=== PATIENT | male | born 1995 | race Caucasian/White ===

== ENCOUNTER 2021-08-01 14:55 | Emergency (ER) | payer MEDICAID, OTHER ==
[~2021-08-01] VITALS: Ht 172.7 cm; Wt 68.0 kg
--- NOTE | 2021-08-01 15:10 | NUR ---
Patient nodded his head yes when asked if he took meth today. His eyes are all red and he is acting abnormal. Placed on a monitor. VSS. IV intact
[2021-08-01] MEDS ORDERED: IV NORMAL SALINE 1000 ML BAG IV ONE ×3 (15:15→18:30)
[2021-08-01] MEDS ORDERED: LORAZEPAM 2 MG/1 ML VIAL IV ONE (15:30)
[2021-08-01 15:35] LABS: HEMATOCRIT 40.5 % (36.7-47.1); MEAN CORPUSCULAR HEMOGLOBIN 30.2 uug (23.8-33.4); MEAN CORPUSCULAR VOLUME 86.8 fL (73.0-96.2); PLATELET COUNT (AUTO) 284 K/uL (152-348)
[2021-08-01] MEDS ORDERED: LORAZEPAM 2 MG/1 ML VIAL ONE (15:39)
[2021-08-01 15:47] LABS: ETHANOL < 3 MG/DL (0-0)
[2021-08-01 15:48] LABS: CARBON DIOXIDE 26 mmol/L (21-32); CHLORIDE 102 mmol/L (98-107); CREATININE 1.2 mg/dL (0.6-1.3); GLUCOSE 89 mg/dL (74-106); POTASSIUM 3.6 mmol/L (3.5-5.1); UREA NITROGEN, BLOOD 17 mg/dL (7-18)
[2021-08-01 16:01] LABS: THYROID STIMULATING HORMONE 1.362 mIU/mL (0.358-3.740)
[2021-08-01 16:03] LABS: ACETAMINOPHEN < 2.0 ug/mL (10-30); ALANINE AMINOTRANSFERASE 37 U/L (16-63); ALKALINE PHOSPHATASE 70 U/L (50-136); ASPARTATE AMINOTRANSFERASE 65 U/L (15-37); BILIRUBIN,DIRECT 0.2 mg/dL (0.0-0.2); BILIRUBIN,TOTAL 0.9 mg/dL (0.2-1.0); CREATINE KINASE, TOTAL 3541 U/L (39-308); TOTAL PROTEIN, SERUM 8.4 g/dL (6.4-8.2)
--- NOTE | 2021-08-01 17:24 | NUR ---
Urine sent to lab
[2021-08-01 18:10] LABS: *BILIRUBIN,URIN NEGATIVE (NEGATIVE); *BLOOD, URINE NEGATIVE (NEGATIVE); *CLARITY,URINE CLEAR (CLEAR); *COLOR,URINE YELLOW (YELLOW); *KETONES,URINE 3+ (NEGATIVE); *UROBILINOGEN,URINE 0.2 E.U./dl (NORMAL); LEUKOCYTE ESTERASE ,URINE NEGATIVE (NEGATIVE); NITRITE, URINE NEGATIVE (NEGATIVE); PH,URINE 6.5 (5.0-8.0); UGLUCOSE NEGATIVE (NEGATIVE)
[2021-08-01 18:22] LABS: *AMPHETAMINE, URINE POSITIVE (NEGATIVE); *CANNABINOID, URINE NEGATIVE (NEGATIVE); *COCCAINE, URINE NEGATIVE (NEGATIVE); *OPIATE, URINE NEGATIVE (NEGATIVE); *PHENCYCLIDINE SCREEN,URINE NEGATIVE (NEGATIVE)
--- NOTE | 2021-08-01 19:00 | NUR ---
BIB [facility] WHO STATE PT WAS FOUND WANDERING ON THE SIDEWALK. PT STATED METH USE PER PARAMEDICS.
[2021-08-01 22:22] LABS: BACTERIA,URINE NONE SEEN /HPF (NONE SEEN); MUCUS,URINE FEW /LPF (0-FEW); RBC,URINE 0-3 /HPF (0-3); SPERM,URINE FEW /HPF (NONE SEEN); SQUAMOUS EPITHELIAL CELL,UR FEW /HPF (NONE SEEN); WBC,URINE 0-3 /HPF (0-3)
--- NOTE | 2021-08-02 00:50 | NUR ---
Patient anxious, restless, kneeling down with face on the floor, stating he is praying. Refusing to get back to bed. Dr. Kebede aware.
[2021-08-02] MEDS ORDERED: OLANZAPINE 10 MG VIAL IM ONE ×2 (01:00→01:21)
--- NOTE | 2021-08-02 02:45 | NUR ---
Patient asleep at this time. Appears comfortable.
--- NOTE | 2021-08-02 04:03 | NUR ---
Patient awake, request for something to eat. Given sandwich and juice.
--- NOTE | 2021-08-02 08:30 | NUR ---
Patient given written and verbal discharge instructions. Patient verbalizes understanding of instructions. Patient is ambulatory with steady gait. Refuses offer of detention placement. Patient given list of available shelters in surrounding area.
[2021-08-02 08:59] VITALS: BP 115/77
== END 2021-08-02 09:01 | disposition home or self-care (01) ==
LOC: ER 14:55
DX: F15.129 Other stimulant abuse with intoxication, unspecified (principal); D72.829 Elevated white blood cell count, unspecified; R00.0 Tachycardia, unspecified; F15.151 Other stimulant abuse with stimulant-induced psychotic disorder with hallucinations
CPT/HCPCS: 36415; 70450; 80048; 80076; 80299; 80307; 80320; 81001; 82550; 84443; 85025; 93005; 96361; 96372; 96374; 99285; J2060; J7040 ×3; A4663; G0480; J2358